=== PATIENT | male | born 1955 | race Hispanic/Latino ===

== ENCOUNTER → 2017-12-18 | Outpatient (CLI) | payer OTHER | END | disposition home or self-care (01) | LOC: RAH 11:38 | PROVIDERS: ATTEND Family Medicine | DX: E04.1 Nontoxic single thyroid nodule (principal) | CPT/HCPCS: 76536 ==

== ENCOUNTER 2022-11-04 05:13 | Emergency (ER) | payer OTHER ==
[~2022-11-04] VITALS: Ht 167.6 cm; Wt 75.3 kg
[2022-11-04] MEDS ORDERED: DIPH1TAB PO (05:56)
[2022-11-04] MEDS ORDERED: LIDOCAINE 5% TOPICAL PATCH TP ONE (06:00)
[2022-11-04] MEDS ORDERED: HYDROCODONE/ACETAMINOPHEN 7.5/325 MG TAB PO ONE (06:00)
[2022-11-04] MEDS ORDERED: LIDOP TD (06:03)
[2022-11-04] MEDS ORDERED: CYCL-309 PO (06:03)
[2022-11-04 10:07] VITALS: BP 146/70; PULSE 76; RESP 18; O2SAT 99
[2022-11-04] MEDS ORDERED: ACETAMINOPHEN 325 MG TAB PO ONE (10:30)
== END 2022-11-04 10:13 | disposition home or self-care (01) ==
LOC: EDH 05:13
DX: G89.29 Other chronic pain (principal); M54.50 Low back pain, unspecified; M79.601 Pain in right arm; M48.02 Spinal stenosis, cervical region; M47.22 Other spondylosis with radiculopathy, cervical region; I10 Essential (primary) hypertension; Z79.899 Other long term (current) drug therapy; Z98.890 Other specified postprocedural states
CPT/HCPCS: 72125; 99291; 99292

== ENCOUNTER → 2022-12-05 | Outpatient (CLI) | payer OTHER ==
[~2022-12-05] MED LIST: CYCL-309 PO; LIDOP TD
== END | disposition home or self-care (01) ==
LOC: RAH 10:37
PROVIDERS: ATTEND Family Medicine
DX: R51.9 Headache, unspecified (principal); R20.0 Anesthesia of skin
CPT/HCPCS: 70551

== ENCOUNTER → 2023-04-05 | Outpatient (CLI) | payer OTHER | END | disposition home or self-care (01) | LOC: RAH 08:15 | PROVIDERS: ATTEND Family Medicine | DX: M47.22 Other spondylosis with radiculopathy, cervical region (principal); R20.0 Anesthesia of skin; R51.9 Headache, unspecified; M48.02 Spinal stenosis, cervical region; M25.70 Osteophyte, unspecified joint | CPT/HCPCS: 72141 ==